=== PATIENT | male | born 1960 | race Caucasian/White ===

== ENCOUNTER 2018-06-25 01:24 | Observation (INO) | payer BC ==
[2018-06-25] MEDS ORDERED: NITROGLYCERIN 0.4 MG/TAB 25 TAB/BOTTLE SL PRN ×2 (02:16→04:03)
--- NOTE | 2018-06-25 02:16 | ER Document Report ---
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 First noticed it while exerting himself loading a truck. Described as central and pressure-like nonradiating. Comes for several minutes and gets better with rest. No radiation to back no shortness of breath or nausea. Denies sweating. Non-smoker. No leg swelling. Pain is not pleuritic. TRAVEL OUTSIDE OF THE [place] IN LAST 30 DAYS: No - Related Data Allergies/Adverse Reactions: Sulfa (Sulfonamide Antibiotics) Allergy (Verified 06/25/18 01:29) Past Medical History - Social History Smoking Status: Never Smoker Family History: None Physical Exam - Vital signs Vitals: Temp Pulse Resp BP Pulse Ox 98.4 F 60 18 135/82 H 96 06/25/18 01:43 06/25/18 01:43 06/25/18 01:43 06/25/18 01:43 06/25/18 01:43 Course - Re-evaluation Re-evalutation: 06/25/18 03:01 Presents with exertional chest pain. He has mild pain at this time. He has some shortness of breath as well. It did not sound like a chest wall issue a PE or dissection but I am concerned for new onset angina. Is not sound like GERD as well, because there is no burning sensation. He does have belching and nausea. Concern for inferior TN. EKG was done, and repeated in the ED, did not show any signs of acute ST change. Troponin was sent. The patient was given aspirin and nitroglycerin. I was called to the bedside at 2:45 AM because pressure gone down with the nitro. I assessed him again his blood pressure was 80/40, he received about 1/2 L of fluid from nursing by the time I arrived to see him and he looked pale and sweaty. Given his response to nitro I am concerned for an occult inferior wall right ventricular TN so I repeated EKG once more as well as of V4 are leads, and did not find acute ischemia. Patient will be admitted for ACS workup. 06/25/18 04:03 Negative vitals stabilized. Will admit the hospitalist for hobs and rule out. - Vital Signs Vital signs: Temp Pulse Resp BP Pulse Ox 98.4 F 60 17 116/77 94 06/25/18 01:43 06/25/18 01:43 06/25/18 02:56 06/25/18 02:56 06/25/18 02:56 - Laboratory Result Diagrams: 06/25/18 02:27 06/25/18 02:27 Laboratory results interpreted by me: 06/25/18 02:27 BUN 22 H - Diagnostic Test Radiology reviewed: Image reviewed, Reports reviewed - EKG Interpretation by Me EKG shows normal: Sinus rhythm Rate: Normal Rhythm: NSR When compared to previous EKG there are: Previous EKG unavailable - No acute ST or T wave changes Critical Care Note - Critical Care Note Total time excluding time spent on procedures (mins): 35 Comments: The above patient is critically ill. Not including procedures, but including direct re-evaluations, speaking with patient and/or consultants, interpreting results, and documenting, I spent the total amount of minute listed listed above on critical care time Discharge - Discharge Clinical Impression: Exertional chest pain Condition: Fair Disposition: ADMITTED OBSERVATION Admitting Provider: Hospitalist Unit Admitted: Telemetry Referrals: PALOMA HERRERA MD [ACTIVE STAFF] - Follow up as needed
[2018-06-25] MEDS ORDERED: ASPIRIN 81 MG TABLET, CHEWABLE ONE (02:29)
[2018-06-25] MEDS ORDERED: ASPIRIN 81 MG TABLET, CHEWABLE PO ONE (02:30)
[2018-06-25 02:34] LABS: ABSOLUTE EOSINOPHILS # (AUTO) 0.1 10^3/uL (0.0-0.6); ABSOLUTE LYMPHOCYTES (AUTO) 2.5 10^3/uL (0.5-4.7); ABSOLUTE MONOCYTES (AUTO) 0.5 10^3/uL (0.1-1.4); ABSOLUTE NEUT (AUTO) 4.7 10^3/uL (1.7-8.2); BASOPHILS % (AUTO) 0.5 % (0-2); EOSINOPHILS % (AUTO) 0.7 % (0-6); HEMATOCRIT 46.7 % (37.9-51.0); HEMOGLOBIN 16.4 g/dL (13.5-17.0); LYMPHOCYTES % (AUTO) 32.4 % (13-45); MEAN CORPUSCULAR HEMOGLOBIN 32.1 pg (27.0-33.4); MEAN CORPUSCULAR HGB CONC 35.2 g/dL (32.0-36.0); MEAN CORPUSCULAR VOLUME 91 fl (80-97); MONOCYTES % (AUTO) 5.8 % (3-13); PLATELET COUNT 223 10^3/uL (150-450); RED BLOOD COUNT 5.11 10^6/uL (4.35-5.55); RED CELL DISTRIBUTION WIDTH 13.6 % (11.5-14.0); SEGMENTED NEUTROPHILS % (AUTO) 60.6 % (42-78); TOTAL CELLS COUNTED % (AUTO) 100 %; WHITE BLOOD COUNT 7.8 10^3/uL (4.0-10.5)
--- NOTE | 2018-06-25 02:47 | RADIOLOGY REPORT (SQ) ---
EXAM DESCRIPTION: XR CHEST 1 VIEW COMPLETED DATE/TME: 06/25/2018 01:56 CLINICAL HISTORY: 57 years Male, cp COMPARISON: None. NUMBER OF VIEWS/TECHNIQUE: 1/AP FINDINGS: Adequate lung volume, clear parenchyma, normal cardiac silhouette, and intact bony thorax. IMPRESSION: No acute cardiopulmonary findings.
[2018-06-25 02:57] LABS: ANION GAP 15 (5-19); BLOOD UREA NITROGEN 22 mg/dL (7-20); CALCIUM 9.8 mg/dL (8.4-10.2); CARBON DIOXIDE 24 mmol/L (22-30); CHLORIDE 104 mmol/L (98-107); GLUCOSE 100 mg/dL (75-110); POTASSIUM 4.1 mmol/L (3.6-5.0); SODIUM 143.3 mmol/L (137-145)
--- NOTE | 2018-06-25 05:29 | PDOC H&P ---
History of Present Illness Admission Date/PCP: 06/25/18 04:20 Patient complains of: Chest pain History of Present Illness: YUNI JAMES is a 57 year old male with a past medical history of dyslipidemia who presents with left-sided chest pain. It is 3 out of 5 intensity, intermittent, nonradiating, associated with nausea without vomiting. Pain is exacerbated by exertion and alleviated by rest. He denies previous episode, change in medications and otherwise feels well. In the emergency room he received sublingual nitroglycerin that precipitously drops his blood pressure and heart rate however returns to baseline after 60 minutes. His workup is unremarkable and is referred to the hospitalist for admission. He denies previous cardiac workup and is currently pain-free. Past Medical History Cardiac Medical History: Reports: Hyperlipidema Psychiatric Medical History: Reports: None Traumatic Medical History: Reports: None Hematology: Reports: None Past Surgical History Past Surgical History: Reports: Appendectomy Social History Information Source: Patient Lives with: Spouse/Significant other Smoking Status: Never Smoker Frequency of Alcohol Use: None Drugs: None - Advance Directive Resuscitation Status: Full Code Family History Family History: CAD Parental Family History Reviewed: Yes Children Family History Reviewed: Yes Sibling(s) Family History Reviewed.: Yes Medication/Allergy Allergies/Adverse Reactions: Sulfa (Sulfonamide Antibiotics) Allergy (Verified 06/25/18 01:29) Review of Systems Constitutional: ABSENT: chills, fever(s), headache(s), weight gain, weight loss Eyes: ABSENT: visual disturbances Ears: ABSENT: hearing changes Cardiovascular: ABSENT: chest pain, dyspnea on exertion, edema, orthropnea, palpitations Respiratory: ABSENT: cough, hemoptysis Gastrointestinal: ABSENT: abdominal pain, constipation, diarrhea, hematemesis, hematochezia, nausea, vomiting Genitourinary: ABSENT: dysuria, hematuria Musculoskeletal: ABSENT: joint swelling Integumentary: ABSENT: rash, wounds Neurological: ABSENT: abnormal gait, abnormal speech, confusion, dizziness, focal weakness, syncope Psychiatric: ABSENT: anxiety, depression, homidical ideation, suicidal ideation Endocrine: ABSENT: cold intolerance, heat intolerance, polydipsia, polyuria Hematologic/Lymphatic: ABSENT: easy bleeding, easy bruising Physical Exam Vital Signs: Temp Pulse Resp BP Pulse Ox 98.4 F 60 17 116/77 94 06/25/18 01:43 06/25/18 01:43 06/25/18 02:56 06/25/18 02:56 06/25/18 02:56 General appearance: PRESENT: no acute distress, well-developed, well-nourished Head exam: PRESENT: atraumatic, normocephalic Eye exam: PRESENT: conjunctiva pink, EOMI, PERRLA. ABSENT: scleral icterus Ear exam: PRESENT: normal external ear exam Mouth exam: PRESENT: moist, tongue midline Neck exam: ABSENT: carotid bruit, JVD, lymphadenopathy, thyromegaly Respiratory exam: PRESENT: clear to auscultation mic. ABSENT: rales, rhonchi, wheezes Cardiovascular exam: PRESENT: RRR. ABSENT: diastolic murmur, rubs, systolic murmur Pulses: PRESENT: normal dorsalis pedis pul Vascular exam: PRESENT: normal capillary refill GI/Abdominal exam: PRESENT: normal bowel sounds, soft. ABSENT: distended, guarding, mass, organolmegaly, rebound, tenderness Rectal exam: PRESENT: deferred Extremities exam: PRESENT: full ROM. ABSENT: calf tenderness, clubbing, pedal edema Neurological exam: PRESENT: alert, awake, oriented to person, oriented to place , oriented to time, oriented to situation, CN II-XII grossly intact. ABSENT: motor sensory deficit Psychiatric exam: PRESENT: appropriate affect, normal mood. ABSENT: homicidal ideation, suicidal ideation Skin exam: PRESENT: dry, intact, warm. ABSENT: cyanosis, rash Results Impressions: Chest X-Ray 06/25/18 01:56 IMPRESSION: No acute cardiopulmonary findings. Assessment & Plan - Diagnosis (1) Exertional chest pain Is this a current diagnosis for this admission?: Yes Plan: Atypical chest pain though the patient's pain is atypical there are multiple risk factors for coronary artery disease and subsequently will observe and evaluation of acute coronary syndrome versus coronary artery disease with anginal equivalents. Cardiac monitoring blood pressure Q6 hours ,TSH, lipid profile, serial cardiac enzymes and cardiac stress test (2) Dyslipidemia Is this a current diagnosis for this admission?: Yes Plan: Empiric statin initiated, follow-up lipid profile - Time Time Spent: 30 to 50 Minutes
[2018-06-25] MEDS ORDERED: ATORVASTATIN CALCIUM 80 MG TABLET PO ONE (05:42)
--- NOTE | 2018-06-25 07:52 | EKG REPORT ---
SEVERITY:- ABNORMAL ECG - SINUS RHYTHM BORDERLINE LEFT AXIS DEVIATION NONSPECIFIC T ABNORMALITIES, INFERIOR LEADS : Confirmed by: Odin Robles MD 25-Jun-2018 07:51:53
--- NOTE | 2018-06-25 07:53 | EKG REPORT ---
SEVERITY:- BORDERLINE ECG - SINUS RHYTHM MILD NONSPECIFIC ST CHANGES INFERIOR LEADS : Confirmed by: Odin Robles MD 25-Jun-2018 07:53:20
[2018-06-25] MEDS: DOCUSATE SODIUM 100 MG CAPSULE PO SCH ×2 (09:25→17:07)
[2018-06-25 09:38] LABS: CREATINE KINASE MB 0.75 ng/mL (<4.55)
[2018-06-25 09:42] LABS: TROPONIN I < 0.012 ng/mL
--- NOTE | 2018-06-25 13:45 | DRAGON STRESS TEST REPORT ---
INTRAVENOUS LEXISCAN CARDIOLITE STRESS TEST USING SINGLE PHOTON EMMISION COMPUTERIZED TOMOGRAPHIC. DATE OF PROCEDURE: June 25, 2018, INDICATION : Chest pain CARDIAC RISK FACTORS: Tobacco abuse RESTING EKG: Sinus rhythm without any baseline ST-T wave changes STRESS EKG: No significant ST segment changes noted with LexiScan bolus REASON FOR TERMINATION: Protocol. PROCEDURE REPORT: Baseline heart rate 63 beats per minute with blood pressure of 128/78. Patient had no significant complaints. Patient was bolused with Lexiscan 0.4 mg intravenously followed by saline bolus. Heart rate at 2 minutes post bolus 90 with a blood pressure of 138/78. 3 minutes post bolus heart rate 82 with blood pressure of 140/84. No significant EKG changes were noted. Patient had no significant complaints during the procedure or postprocedure. CONCLUSIONS: Normal EKG and hemodynamic response to IV LexiScan. NUCLEAR DATA: At rest the patient was given 10.17 millicuries of technetium 99 sestamibi injected intravenously. As per protocol rest gated SPECT images were obtained. On day of stress test, the patient was given intravenous LexiScan at a dose of 0.4 mg in 5 mL intravenously, followed by flush with normal saline. Subsequently the stress dose of 30.9 millicuries of technetium 99 sestamibi was injected intravenously. As per protocol stress gated images were obtained. NUCLEAR INTERPRETATION: Both raw and processed data were used for interpretation. Visual, qualitative, computer-generated quantitative data was used. There was good myocardial uptake of technetium compound. Motion artifact and soft tissue attenuations were noted. Increased visceral uptake was noted. No definitive areas of transient perfusion defect noted, No definitive areas of fixed perfusion defect or scars noted. EKG gated imaging showed LV EF at 63 %, rest and stress gated EF similar visually. T. I D. ratio was 1.07. Lung heart ratio noted to be within normal limits 0.25. No significant extracardiac and abnormal radiotracer activities were noted. RV free wall uptake was noted to be WNL. IMPRESSION: Also refer to comments under nuclear interpretation. Also test results needs to be interpreted in the context of pretest probability. 1. No definitive areas of transient perfusion defect noted. 2. There is no definitive scintigraphic evidence of myocardial infarction/scar. 3. EKG gated imaging shows left ventricular ejection fraction of approx. 63 %. 4. Clinical correlation requested as worse disease and or balanced ischemia could be missed. In approximately 10% of the cases Lexiscan may not cause adequate vasodilatory stress. RECOMMENDATIONS: Aggressive risk factor modification and medical management. Further evaluation may be needed if continued symptoms or other high risk indicators are noted on clinical evaluation. Close cardiology follow-up is also recommended. Clinical correlation with echocardiogram derived ejection fraction. Inability to exercise by itself can lead to increased cardiovascular event risks. Consider cardiology consultation and or follow-up if clinically indicated. I am available for cardiology evaluation and consultation if requested by the economic research assistant, unless patient already has a toppiece cutter. Dr. Kye Shipley. MRCP Board certified in cardiology and sleep medicine. Board certified in nuclear cardiology, adult echocardiography. JULIANA
[2018-06-25] MEDS ORDERED: AMINOPHYLLINE INJ/PF 250 MG/10 ML SDV IV ONE (14:51)
[2018-06-25] MEDS ORDERED: REGADENOSON INJ 0.4 MG/5 ML DISP.SYRIN IV ONE (14:51)
[2018-06-25 15:39] LABS: CREATINE KINASE MB 0.67 ng/mL (<4.55)
[2018-06-25 15:47] LABS: TROPONIN I < 0.012 ng/mL
[2018-06-25 20:55] LABS: CREATINE KINASE MB 0.68 ng/mL (<4.55); TROPONIN I < 0.012 ng/mL
[2018-06-26] MEDS: DOCUSATE SODIUM 100 MG CAPSULE PO SCH (09:37)
[2018-06-26 11:56] VITALS: BP 116/72
--- NOTE | 2018-06-26 17:58 | PDOC DISCHARGE SUMMARY ---
General - Admit/Disc Date/PCP Admission Date/Primary Care Provider: 06/25/18 04:20 Discharge Date: 06/26/18 - Discharge Diagnosis (1) Exertional chest pain Is this a current diagnosis for this admission?: Yes (2) Dyslipidemia Is this a current diagnosis for this admission?: Yes (3) GERD (gastroesophageal reflux disease) Is this a current diagnosis for this admission?: Yes - Additional Information Resuscitation Status: Full Code Prescriptions: Pantoprazole Sodium [Protonix] 40 mg PO DAILY 30 Days #30 tablet. Home Medications: Multivitamin [Tab-A-Milind (Multiple Vitamin) Tablet] 1 tab PO DAILY 06/25/18 Pantoprazole Sodium [Protonix] 40 mg PO DAILY 30 Days #30 tablet. 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 Hospital Course Hospital Course: Patient was admitted to hospitalist service. He ruled out for OK with serial troponin x3. Stress Cardiolite done that revealed no reversible ischemia. Patient reports problem with indigestion/reflux symptoms. He has not tried any medications. Will treat with trial of Protonix. Patient also reports transient shortness of breath with exertion. I believe he will need echocardiogram. He wishes to follow-up with high lift driver, Dr. Shipley, and I have discussed with the high lift driver, Dr. Shipley. Patient also states he was told he will need sleep study at some point. Patient being discharged in stable condition. He is to follow-up with Dr. Shipley as above. He is also to follow-up with his primary care physician within 1 week. Again, trial of Protonix 40 mg p.o. daily for possible reflux symptoms. Suggest PCP refer patient to records management analyst if persistent reflux symptoms after trial of PPI or if alarm symptoms, such as dysphagia, weight loss , GI bleed, or early satiety, among others. Physical Exam Vital Signs: Temp Pulse Resp BP Pulse Ox 97.4 F 63 12 102/63 99 06/26/18 07:44 06/26/18 07:44 06/26/18 07:44 06/26/18 07:44 06/26/18 07:44 Intake & Output 06/25/18 06/26/18 06/27/18 06:59 06:59 06:59 Intake Total 459 Balance 459 Weight 72.9 kg GENERAL: Well-developed, well-nourished male, no acute distress HEENT: Normocephalic/atraumatic NECK supple, no JVD CARDIOVASCULAR: RRR, normal S1-S2, no m/r/g LUNGS: CTA bilaterally ABDOMEN: Soft, NT, NL bowel sounds EXTREMITIES: No edema, clubbing, cyanosis NEUROLOGICAL: Alert, oriented x 3, nonfocal Results Laboratory Results: 06/25/18 06/25/18 06/25/18 08:35 14:54 20:17 Creatine Kinase CK-MB (CK-2) 0.75 0.67 0.68 Troponin I < 0.012 < 0.012 < 0.012 06/26/18 04:21 Creatine Kinase 80 CK-MB (CK-2) Troponin I Impressions: Chest X-Ray 06/25/18 01:56 IMPRESSION: No acute cardiopulmonary findings. Qualifiers - * PATIENT BEING DISCHARGED WITH ANY OF THE FOLLOWING DIAGNOSIS: No
== END 2018-06-26 12:17 | disposition home or self-care (01) ==
LOC: ER 01:24 → EH 04:20 → 3W 06:15
PROVIDERS: ADMIT Internal Medicine; ATTEND Internal Medicine
DX: R07.89 Other chest pain (principal); E78.5 Hyperlipidemia, unspecified; K21.9 Gastro-esophageal reflux disease without esophagitis; R06.02 Shortness of breath; R11.0 Nausea; Z90.49 Acquired absence of other specified parts of digestive tract; Z82.49 Family history of ischemic heart disease and other diseases of the circulatory system
CPT/HCPCS: 93005; 99291; 36415 ×2; 82553; 82550; 85025; 80048; 84484; 93017; 71045; 78452; 93010; G0378 ×3; A9500; J2785; J3490 ×2; J0280; Q9969

== ENCOUNTER 2019-09-19 01:37 | Emergency (ER) | payer BC ==
[2019-09-19 06:22] LABS: ABSOLUTE EOSINOPHILS # (AUTO) 0.1 10^3/uL (0.0-0.6); ABSOLUTE LYMPHOCYTES (AUTO) 2.7 10^3/uL (0.5-4.7); ABSOLUTE MONOCYTES (AUTO) 0.3 10^3/uL (0.1-1.4); ABSOLUTE NEUT (AUTO) 4.1 10^3/uL (1.7-8.2); BASOPHILS % (AUTO) 0.6 % (0-2); EOSINOPHILS % (AUTO) 1.1 % (0-6); HEMATOCRIT 48.9 % (37.9-51.0); HEMOGLOBIN 17.2 g/dL (13.5-17.0); LYMPHOCYTES % (AUTO) 37.1 % (13-45); MEAN CORPUSCULAR HEMOGLOBIN 32.2 pg (27.0-33.4); MEAN CORPUSCULAR HGB CONC 35.2 g/dL (32.0-36.0); MEAN CORPUSCULAR VOLUME 91 fl (80-97); MONOCYTES % (AUTO) 4.2 % (3-13); PLATELET COUNT 250 10^3/uL (150-450); RED BLOOD COUNT 5.35 10^6/uL (4.35-5.55); RED CELL DISTRIBUTION WIDTH 13.4 % (11.5-14.0); TOTAL CELLS COUNTED % (AUTO) 100 %; WHITE BLOOD COUNT 7.2 10^3/uL (4.0-10.5)
[2019-09-19 06:41] LABS: ALBUMIN 4.2 g/dL (3.5-5.0); ALKALINE PHOSPHATASE 83 U/L (38-126); ANION GAP 9 (5-19); ASPARTATE AMINO TRANSFERASE 21 U/L (17-59); BLOOD UREA NITROGEN 16 mg/dL (7-20); CALCIUM 9.7 mg/dL (8.4-10.2); CARBON DIOXIDE 26 mmol/L (22-30); CHLORIDE 103 mmol/L (98-107); CREATINE KINASE 112 U/L (55-170); GLUCOSE 90 mg/dL (75-110); POTASSIUM 4.3 mmol/L (3.6-5.0); TOTAL PROTEIN 6.8 g/dL (6.3-8.2)
[2019-09-19 07:52] LABS: CREATINE KINASE MB 1.08 ng/mL (<4.55)
[2019-09-19 07:54] LABS: TROPONIN I < 0.012 ng/mL
[2019-09-19] MEDS ORDERED: METOCLOPRAMIDE HCL INJ/PF 10 MG/2 ML SDV IV ONE (09:39)
[2019-09-19] MEDS ORDERED: MECLIZINE HCL 25 MG TABLET PO ONE (09:39)
[2019-09-19] MEDS ORDERED: NORMAL SALINE 1000 ML 1,000 ML IV ONE (09:42)
--- NOTE | 2019-09-19 09:42 | ER Document Report ---
ED Medical Screen (RME) - General Chief Complaint: Dizziness Stated Complaint: DIZZINESS Time Seen by Provider: 09/19/19 09:27 Notes: Patient is a 58-year-old male who presents to the emergency department with a chief complaint of dizziness. Patient ended up having some dizziness 6 days ago. 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 He states that if he is lying still, he is fine, but if he stands up he ends up getting dizzy. States that sometimes it feels like the world is spinning. He does not take any medications. Denies any past medical history. He does have some nasal congestion. TRAVEL OUTSIDE OF THE [place] IN LAST 30 DAYS: No - Related Data Allergies/Adverse Reactions: Sulfa (Sulfonamide Antibiotics) Allergy (Verified 06/25/18 01:29) Past Medical History - Social History Chew tobacco use (# tins/day): No Frequency of alcohol use: None Drug Abuse: None - Past Medical History Cardiac Medical History: Reports: Hx Hypercholesterolemia Renal/ Medical History: Denies: Hx Peritoneal Dialysis Past Surgical History: Reports: Hx Appendectomy, Hx Tonsillectomy Review of Systems - Review of Systems Notes: REVIEW OF SYSTEMS: CONSTITUTIONAL : Denies recent illness. Denies recent unintentional weight loss. Denies fever, chills, or sweats. EENT: Denies eye, ear, throat, or mouth pain, discharge, or symptoms. See HPI. CARDIOVASCULAR: Denies chest pain. RESPIRATORY: Denies shortness of breath, cough, congestion, difficulty breathing, or wheezing. GASTROINTESTINAL: Denies nausea, vomiting, and diarrhea. Denies abdominal pain. Denies constipation. GENITOURINARY: Denies difficulty urinating, burning, blood in urine, urgency or frequency. MUSCULOSKELETAL: Denies neck and back pain. Denies joint pain or swelling. SKIN: Denies rash, itchiness, or lesions HEMATOLOGIC : Denies easy bruising or bleeding. LYMPHATIC: Denies swollen, painful, enlarged glands. NEUROLOGICAL: Denies no numbness or tingling denies weakness. Denies headache. Denies altered mental status. Denies alteration in speech. See HPI. PSYCHIATRIC: Denies stress, anxiety, alteration in sleep patterns, or depressi on. All other systems reviewed and negative. Physical Exam - Vital signs Vitals: Temp Pulse Resp BP Pulse Ox 97.9 F 70 14 117/60 99 09/19/19 02:02 09/19/19 02:02 09/19/19 02:02 09/19/19 02:02 09/19/19 02:02 - Notes Notes: PHYSICAL EXAMINATION: GENERAL: Appears well, healthy, well-nourished, no acute distress. HEAD: Normocephalic, atraumatic. EYES: PERRL, conjunctiva normal, all extraocular movements intact, sclera nonicteric ENT: Moist mucous membranes. Edema and erythema noted to nasal mucosa. NECK: Supple, no noticeable swelling, redness, rash. Normal range of motion. LUNGS: Equal breath sounds bilaterally and clear to auscultation. No wheezes rales or rhonchi. CARDIOVASCULAR: S1-S2, regular rate, regular rhythm. Radial pulses 2+, normal. ABDOMEN: Normoactive bowel sounds. Soft, nontender, no guarding, no rebound tenderness, and no masses palpated. EXTREMITIES: Normal strength and range of motion, no pitting or edema. No cyanosis. NEUROLOGICAL: Moves all extremities upon command. Strength 5/5 in all extremities. PSYCH: Normal mood, normal affect. SKIN: Warm, dry. No rash, lesions, ulcerations noted. Normal skin turgor. Course - Re-evaluation Re-evalutation: 09/19/19 09:42 Chemistries are unremarkable. Hematology is also unremarkable. Patient will receive a dose of meclizine. We will also give him Reglan. Patient does not have any neurological deficits. I have very low suspicion for stroke. 09/19/19 11:33 Patient states that he feels better after receiving meclizine and Reglan. I discussed the plan of care with the patient and he will be started on meclizine, Reglan, and Flonase to manage his symptoms. I suspect his dizziness is from the inflammation in his nose, as he has edema and erythema noted to his nasal mucosa. He will follow-up with his primary care provider. Follow-up precautions were given. Verbal discharge instructions were given to the patient. They verbalized understanding. They are stable for discharge. - Vital Signs Vital signs: Temp Pulse Resp BP Pulse Ox 98.2 F 50 L 14 102/71 95 09/19/19 02:11 09/19/19 05:59 09/19/19 11:01 09/19/19 11:01 09/19/19 11:01 - Laboratory Result Diagrams: 09/19/19 05:55 09/19/19 05:55 Laboratory results interpreted by me: 09/19/19 05:55 Hgb 17.2 H Doctor's Discharge - Discharge Clinical Impression: Dizziness Condition: Stable Disposition: HOME, SELF-CARE Instructions: Antinausea Medication ([facility]), Dizziness ([facility]), Meclizine ([facility]) Additional Instructions: You were seen today in the emergency department for dizziness. Your labs are normal. You received fluids, meclizine, and Reglan to help with your symptoms. You are being sent home with meclizine and Reglan to help with your symptoms. You are also being sent home with Flonase for your nasal congestion. If you continue to have the symptoms when you follow-up with your primary care provi lazara, ask them about an evaluation for a sinus infection. Follow-up with your primary care provider on Saturday. Prescriptions: Meclizine HCl [Antivert 25 mg Tablet] 25 mg PO TID PRN #21 tablet PRN Reason: Fluticasone Propionate [Flonase Nasal [place] 50 Mcg/[place] 16 gm] 2 sprays NASL DAILY #1 inhaler Metoclopramide HCl [Reglan 10 mg Tablet] 1 - 2 tab PO ASDIR PRN #25 tablet PRN Reason: Forms: Return to Work
[2019-09-19 12:28] VITALS: BP 111/72
--- NOTE | 2019-09-19 23:40 | EKG REPORT ---
SEVERITY:- ABNORMAL ECG - SINUS RHYTHM NONSPECIFIC T ABNORMALITIES, INFERIOR LEADS : Confirmed by: Wyatt Shipley 19-Sep-2019 23:38:58
== END 2019-09-19 12:00 | disposition home or self-care (01) ==
LOC: ER 01:37
DX: R42 Dizziness and giddiness (principal); R09.81 Nasal congestion
CPT/HCPCS: 93005; 99284; 96361; 96374; 36415; 82553; 82550; 85025; 80053; 84484; 93010; J2765; J7030